=== PATIENT | female | born 1955 | race Hispanic/Latino ===

== ENCOUNTER 2018-06-18 17:05 | Emergency (ER) | payer MEDICARE, SELFPAY ==
[2018-06-18 17:10] VITALS: BP 163/72; PULSE 86; RESP 20; TEMP 37.2; O2SAT 100
--- NOTE | 2018-06-18 17:27 | DI.RAD.S_ITS ---
PROCEDURE: XR KNEE LT 3V INDICATIONS: fall with anterior pain TECHNIQUE: 3 views of the knee were acquired. COMPARISON: None. FINDINGS: Bones: No fractures or dislocations. No suspicious bony lesions. Soft tissues: No joint effusion. No suspicious soft tissue calcifications. IMPRESSION: No acute radiographic findings. If pain persists, repeat study in 5-7 days is recommended to exclude occult fracture. Dictated by: Katia Carvalho M.D. on 06/18/2018 at 18:29 Approved by: Katia Carvalho M.D. on 06/18/2018 at 18:29
--- NOTE | 2018-06-18 17:27 | DI.CT.S_ITS ---
PROCEDURE: CT HEAD/BRAIN WO CON INDICATIONS: fall, not on anticoagulation TECHNIQUE: Noncontrast 4.5 mm thick angled axial sections acquired from the foramen magnum to the vertex, with coronal and sagittal reformats. For radiation dose reduction, the following was used: automated exposure control, adjustment of mA and/or kV according to patient size. COMPARISON: None. FINDINGS: Image quality: Excellent. CSF spaces: Basal cisterns are patent. No extra-axial fluid collections. Ventricles are normal in size and shape. Brain: No midline shift. No intracranial masses or hemorrhage. Burnham-white matter interface is normal. Skull and face: Calvarium and visualized facial bones are intact, without suspicious lesions. Sinuses: Visualized sinuses and mastoids are clear. IMPRESSION: 1. No acute intracranial findings. Dictated by: Katia Carvalho M.D. on 06/18/2018 at 18:09 Approved by: Katia Carvalho M.D. on 06/18/2018 at 18:12
[2018-06-18] MEDS: ONDANSETRON 4 MG/2 ML INJ IV (17:28)
--- NOTE | 2018-06-18 17:52 | ED.FALL ---
HPI - Fall <Flor Holt PA-C - Last Filed: 06/18/18 21:41> General Chief Complaint: Fall Stated Complaint: GLF Time Seen by Provider: 06/18/18 17:24 Source: patient and family Mode of arrival: EMS Limitations: no limitations History of Present Illness HPI Narrative: This 62-year-old female comes to ED via EMS secondary to ground level fall. She states that she was at the [employer] and having dinner with her sister. She had 3 beers which she does occasionally. She was walking out and looking down at her phone when she tripped. She states that she did not have any lightheadedness, chest pain, palpitations or any other problems prior to falling. Her sister heard her scream. She was not right there but thinks that patient did pass out for a few seconds. Patient remembers that she fell forward, hitting her knees, more on the left side, then bounced and rolled onto the back of her head hitting that on the pavement as well. She states that her chest hurt for a a few seconds but no pain since. She does not feel short of breath. She denies any abdominal pain. She states that she vomited 4 or 5 times after she fell but has not vomited since, maybe some minimal nausea now. She denies any acute vision change. She does have headache in the back of her head where she hit her head. She states that her left knee is sore, right not so much. She has not noted any other pain in her extremities. Denies pain in her neck or back. Related Data Home Medications Medication Instructions Recorded Confirmed gabapentin 100 mg PO BEDTIME 06/18/18 Previous Rx's Medication Instructions Recorded hydrocodone-acetaminophen [Iroquois] 1 tab PO Q4-6H PRN #10 tab 06/18/18 ondansetron 4 mg PO Q6-8H PRN #10 tab 06/18/18 Allergies Allergy/AdvReac Type Severity Reaction Status Date / Time No Known Drug Allergies Allergy Verified 06/18/18 17:28 Review of Systems <Flor Holt PA-C - Last Filed: 06/18/18 21:41> Review of Systems ROS Unobtainable: All systems reviewed & are unremarkable except as noted in HPI and below Exam <Flor Holt PA-C - Last Filed: 06/18/18 21:41> Narrative Exam Narrative: GENERAL APPEARANCE: Patient sitting comfortably, in no distress. HEENT: PERRL, EOMI, normal TMs and oropharynx, no sinus TTP NECK: Supple LUNGS: Clear to auscultation bilaterally. HEART: Rate and rhythm regular without murmur, normal S1 and S2, no S3 or S4. ABDOMEN: Soft, NT, ND, + BS x 4 quadrants NEUROLOGIC: Alert and oriented, normal speech, gait and coordination. MUSCULOSKELETAL: Full Csp AROM Initial Vital Signs Initial Vital Signs: Vital Signs Temperature 98.9 F 06/18/18 17:10 Pulse Rate 86 06/18/18 17:10 Respiratory Rate 20 06/18/18 17:10 Blood Pressure 163/72 H 06/18/18 17:10 Pulse Oximetry 100 06/18/18 17:10 <Ananda Sloan MD - Last Filed: 06/19/18 03:41> Initial Vital Signs Initial Vital Signs: Vital Signs Temperature 98.9 F 06/18/18 17:10 Pulse Rate 86 06/18/18 17:10 Respiratory Rate 20 06/18/18 17:10 Blood Pressure 163/72 H 06/18/18 17:10 Pulse Oximetry 100 06/18/18 17:10 Course <KATINA Nettles-Sunday - Last Filed: 06/18/18 21:41> Additional Information: No acute findings on imaging studies. Patient reported some continued headache and was given a dose of Iroquois, which she reported taking previously without problems. Nausea was improved and she has not had vision change. She was able to ambulate to the restroom. Her hip and knee are quite sore, but she feels like she will be able to get around the house. She agreed to return if any acute changes, i.e. worsening headache, vomiting, new vision change, or pain in other locations. Otherwise advised rest, with PCP in the next few days to reassess, and she is agreeable. Orders Ordered: Discontinued Medications Acetaminophen (Tylenol) 650 mg PO NOW ONE Stop: 06/18/18 18:30 Last Admin: 06/18/18 18:50 Dose: 650 mg Hydrocodone Bitart/Acetaminophen (Iroquois 5/325) 1 tab PO NOW ONE Stop: 06/18/18 19:28 Last Admin: 06/18/18 19:41 Dose: 1 tab Ondansetron HCl (Zofran) 4 mg IV NOW ONE Stop: 06/18/18 17:25 Last Admin: 06/18/18 17:28 Dose: 4 mg Ondansetron HCl (Zofran Odt) 4 mg SL NOW ONE Stop: 06/18/18 18:30 Last Admin: 06/18/18 18:48 Dose: Not Given Vital Signs - 8 hr 06/18/18 20:18 Pulse Rate 59 L Respiratory Rate 16 Blood Pressure 112/54 L Pulse Oximetry 98 <Ananda Sloan MD - Last Filed: 06/19/18 03:41> Orders Ordered: Discontinued Medications Acetaminophen (Tylenol) 650 mg PO NOW ONE Stop: 06/18/18 18:30 Last Admin: 06/18/18 18:50 Dose: 650 mg Hydrocodone Bitart/Acetaminophen (Iroquois 5/325) 1 tab PO NOW ONE Stop: 06/18/18 19:28 Last Admin: 06/18/18 19:41 Dose: 1 tab Ondansetron HCl (Zofran) 4 mg IV NOW ONE Stop: 06/18/18 17:25 Last Admin: 06/18/18 17:28 Dose: 4 mg Ondansetron HCl (Zofran Odt) 4 mg SL NOW ONE Stop: 06/18/18 18:30 Last Admin: 06/18/18 18:48 Dose: Not Given Vital Signs - 8 hr 06/18/18 20:18 Pulse Rate 59 L Respiratory Rate 16 Blood Pressure 112/54 L Pulse Oximetry 98 MDM - Fall <Flor Holt PA-C - Last Filed: 06/18/18 21:41> Imaging Data CT scan - head: Radiologist's impression: [address] [address] [address] Scan Report Signed Patient: Barbara Jarrell#: [id number] : [id number] Age/Sex: 62 / FDate of Service: 06/18/18 Loc: ED Accession Number: [id number] Procedure: CT head/brain wo con Ordering Provider: Fernando Boateng D.O. PROCEDURE: CT HEAD/BRAIN WO CON INDICATIONS: fall, not on anticoagulation TECHNIQUE: Noncontrast 4.5 mm thick angled axial sections acquired from the foramen magnum to the vertex, with coronal and sagittal reformats. For radiation dose reduction, the following was used: automated exposure control, adjustment of mA and/or kV according to patient size. COMPARISON: None. FINDINGS: Image quality: Excellent. CSF spaces: Basal cisterns are patent. No extra-axial fluid collections. Ventricles are normal in size and shape. Brain: No midline shift. No intracranial masses or hemorrhage. Burnham-white matter interface is normal. Skull and face: Calvarium and visualized facial bones are intact, without suspicious lesions. Sinuses: Visualized sinuses and mastoids are clear. IMPRESSION: 1. No acute intracranial findings. Dictated by: Katia Carvalho M.D. on 06/18/2018 at 18:09 Approved by: Katia Carvalho M.D. on 06/18/2018 at 18:12 Discharge Plan Departure Patient Disposition: Home Clinical Impression: Concussion, Contusion of multiple sites Discharge Date/Time: 06/18/18 20:17 Interventions: ED Discharge Assessment Last Done: 06/18/18 20:18 Instructions: DI for Concussion Activity Restrictions/Additional Instructions: Please return as we talked about if you have acutely worsening symptoms again, i.e. severe headache, pain in a new location, uncontrollable vomiting or vision change. Otherwise, your likely to be sore for some time. I have prescribed hydrocodone/acetaminophen for you since you have taken that in the past without problems. You can use this as needed but when you are better, please resume plain Tylenol. I have also prescribed the nausea Odansentron to you to use as needed for the next couple of days if you needed. It is common to have headache for some time after a concussion. Please avoid too much brain work . Rest in a quiet environment, avoid exposure to screens, loud noise, etc. See your PCP in the next few days for follow-up and recheck. Prescriptions: New hydrocodone-acetaminophen [Iroquois] 5-325 mg tablet 1 tab PO Q4-6H PRN (Reason: acute hip/knee pain) Qty: 10 RF: 0 ondansetron 4 mg tablet,disintegrating 4 mg PO Q6-8H PRN (Reason: nausea ) Qty: 10 RF: 0 No Action gabapentin 100 mg capsule 100 mg PO BEDTIME RF: 0 Referrals: Donna Hernandez at [facility] [Other] <Ananda Sloan MD - Last Filed: 06/19/18 03:41> Cosign ED Attending Cosignature Attestation: I was in the ER at the time of this patient's care. I was available for verbal consultation or to see the patient directly if needed. I agree with the PA's assessment and treatment plan.
[2018-06-18 18:18] VITALS: BP 142/71; PULSE 67; RESP 19; O2SAT 99
--- NOTE | 2018-06-18 18:26 | DI.RAD.S_ITS ---
PROCEDURE: XR HIP W PEL IF DONE LT 2V INDICATIONS: fall, lateral and posterior pain TECHNIQUE: AP pelvis with lateral view(s) of the left hip(s). COMPARISON: None. FINDINGS: Bones: No fractures or dislocations. Pelvic ring appears intact. No suspicious bony lesions. Soft tissues: The visualized bowel gas pattern is normal. No suspicious soft tissue calcifications. IMPRESSION: No acute radiographic findings. If pain persists, repeat study in 5-7 days is recommended to exclude occult fracture. Approved by: Katia Carvalho M.D. on 06/18/2018 at 18:55
[2018-06-18] MEDS: ACETAMINOPHEN 325 MG TABLET 650 MG PO (18:50)
[2018-06-18] MEDS: HYDROCODONE/ACET 5/325 TABLET 1 TAB PO (19:41)
[2018-06-18 20:18] VITALS: BP 112/54; PULSE 59; RESP 16; O2SAT 98
== END 2018-06-18 20:17 | disposition home or self-care (01) ==
PROVIDERS: Emergency Provider Internal Medicine
DX: S06.0X9A Concussion with loss of consciousness of unspecified duration, initial encounter (principal); T07.XXXA Unspecified multiple injuries, initial encounter; W18.30XA Fall on same level, unspecified, initial encounter
CPT/HCPCS: 70450; 73502; 73562; 96374; 99283; 99284; J2405